=== PATIENT | female | born 1965 | race African-American/Black ===

== ENCOUNTER 2019-08-06 19:09 | Inpatient (IN) | payer MEDICARE, MEDICAID ==
[~2019-08-06] VITALS: Ht 167.6 cm; Wt 63.5 kg
[2019-08-06] MEDS ORDERED: ACETAMINOPHEN 325MG TABLET PO STA (19:22)
[2019-08-06] MEDS ORDERED: VANCOMYCIN 1 G PREMIX 200 ML IV ONE (19:30)
[2019-08-06] MEDS ORDERED: PIPERACILLIN/TAZ 3.375G PREMIX 50 ML IV ONE (19:30)
[2019-08-06 20:12] LABS: BASOPHILS % 0.3 % (0.0-2.0); EOSINOPHILS % 0.9 % (0.0-5.0); HEMATOCRIT. 33.6 % (36.0-48.0); HEMOGLOBIN. 10.9 g/dL (12.0-16.0); LYMPHOCYTES % 9.9 % (20.0-50.0); MEAN CORPUSCULAR HEMOGLOBIN 28.5 pg (28.0-32.0); MEAN CORPUSCULAR VOLUME 88.2 fL (81.0-99.0); MEAN PLATELET VOLUME 8.1 fl (7.4-10.4); MONOCYTES % 11.6 % (2.0-8.0); NEUTROPHILS % 77.3 % (40.0-76.0); PLATELET 219 x1000/uL (130-400); RED BLOOD CELL COUNT 3.81 mill/uL (4.2-5.4); RED CELL DISTRIBUTION WIDTH 18.7 % (11.6-14.6)
[2019-08-06 20:17] LABS: CHLORIDE 93 mEq/L (98-107)
[2019-08-06 20:18] LABS: INR 1.1; PROTHROMBIN TIME 10.8 sec (9.6-11.0)
[2019-08-06] MEDS ORDERED: MORPHINE SULFATE 4 MG/ML CPJ (NOT FOR IM USE) IV STA (22:40)
[2019-08-06] MEDS ORDERED: ONDANSETRON HCL 4MG/2ML INJ IV STA (22:40)
[2019-08-06] MEDS ORDERED: CLONIDINE 0.1MG TABLET PO PRN (23:30)
[2019-08-06] MEDS ORDERED: ONDANSETRON HCL 4MG/2ML INJ IV PRN (23:30)
[2019-08-07] MEDS: HYDROCODONE/ACETAMINOPHEN 5/325MG TABLET PO PRN ×4 (05:32→13:05)
[2019-08-07] MEDS: ACETAMINOPHEN 325MG TABLET PO PRN ×3 (05:40→17:33)
[2019-08-07] MEDS ORDERED: LEVETIRACETAM 500MG PREMIX 100 ML IV NR (10:30)
[2019-08-07 15:59] LABS: BASOPHILS % 0.4 % (0.0-2.0); EOSINOPHILS % 1.3 % (0.0-5.0); HEMATOCRIT. 31.2 % (36.0-48.0); HEMOGLOBIN. 10.2 g/dL (12.0-16.0); LYMPHOCYTES % 15.6 % (20.0-50.0); MEAN CORPUSCULAR HEMOGLOBIN 28.5 pg (28.0-32.0); MEAN CORPUSCULAR VOLUME 87.5 fL (81.0-99.0); MEAN PLATELET VOLUME 8.4 fl (7.4-10.4); MONOCYTES % 9.3 % (2.0-8.0); NEUTROPHILS % 73.4 % (40.0-76.0); PLATELET 213 x1000/uL (130-400); RED BLOOD CELL COUNT 3.56 mill/uL (4.2-5.4)
[2019-08-07 16:02] LABS: CHLORIDE 93 mEq/L (98-107)
[2019-08-07 17:00] VITALS: BP 141/66
[2019-08-07] MEDS: SEVELAMER CARBONATE 800 MG TABLET PO SCH (17:50)
[2019-08-07] MEDS: ATENOLOL 50 MG TABLET PO SCH (18:00)
[2019-08-07] MEDS: NIFEDIPINE XL 30MG TAB PO SCH (18:00)
[2019-08-07 20:00] VITALS: BP 145/83
[2019-08-07] MEDS ORDERED: CEFTRIAXONE 1 G PREMIX 50 ML IV SCH (20:00)
[2019-08-07] MEDS: CINACALCET HCL 30MG TABLET PO SCH ×2 (20:00→22:20)
[2019-08-07] MEDS ORDERED: GENTAMICIN 120MG PREMIX 100 ML IV SCH (21:00)
[2019-08-07] MEDS: LEVETIRACETAM 500MG TABLET PO SCH (22:19)
[2019-08-07] MEDS: ATORVASTATIN CALCIUM 10MG TABLET PO SCH (22:20)
[2019-08-07] MEDS: HYDROCODONE/ACETAMINOPHEN 10/325MG TABLET PO PRN (22:30)
[2019-08-07] MEDS: HEPARIN 5000 UNITS/ML VIAL SUBCUT SCH (22:31)
[2019-08-07] MEDS ORDERED: ATOR40TA70 PO (23:37)
[2019-08-07] MEDS ORDERED: CINA90TA PO (23:37)
[2019-08-07] MEDS ORDERED: NIFE90TA2 PO (23:37)
[2019-08-07] MEDS ORDERED: ATEN100T PO (23:37)
[2019-08-07] MEDS ORDERED: KEPP500 PO (23:37)
[2019-08-08] VITALS: BP 167/77
[2019-08-08 04:00] VITALS: BP 196/89
[2019-08-08] MEDS: HYDROCODONE/ACETAMINOPHEN 10/325MG TABLET PO PRN ×3 (05:50→20:40)
[2019-08-08 08:00] VITALS: BP 168/78
[2019-08-08] MEDS: LEVETIRACETAM 500MG TABLET PO SCH ×2 (08:27→20:41)
[2019-08-08] MEDS: NIFEDIPINE XL 30MG TAB PO SCH (08:27)
[2019-08-08] MEDS: SEVELAMER CARBONATE 800 MG TABLET PO SCH ×3 (08:27→18:06)
[2019-08-08] MEDS: ATENOLOL 50 MG TABLET PO SCH (08:28)
[2019-08-08] MEDS: HEPARIN 5000 UNITS/ML VIAL SUBCUT SCH ×2 (08:28→20:41)
[2019-08-08 09:32] LABS: PHOSPHORUS 5.2 mg/dL (2.5-4.9)
[2019-08-08 09:47] LABS: BASOPHILS % 0.2 % (0.0-2.0); EOSINOPHILS % 2.9 % (0.0-5.0); HEMATOCRIT. 33.7 % (36.0-48.0); HEMOGLOBIN. 11.1 g/dL (12.0-16.0); LYMPHOCYTES % 13.8 % (20.0-50.0); MEAN CORPUSCULAR HEMOGLOBIN 29.8 pg (28.0-32.0); MEAN CORPUSCULAR VOLUME 90.6 fL (81.0-99.0); MEAN PLATELET VOLUME 8.7 fl (7.4-10.4); MONOCYTES % 9.7 % (2.0-8.0); NEUTROPHILS % 73.4 % (40.0-76.0); PLATELET 215 x1000/uL (130-400); RED BLOOD CELL COUNT 3.72 mill/uL (4.2-5.4)
[2019-08-08] MEDS: CINACALCET HCL 30MG TABLET PO SCH (10:29)
[2019-08-08] MEDS ORDERED: LOSARTAN POTASSIUM 50 MG TABLET PO SCH (11:30)
[2019-08-08 12:00] VITALS: BP 165/79
[2019-08-08] MEDS ORDERED: CEFTRIAXONE 1 G PREMIX 50 ML IV SCH (14:00)
[2019-08-08] MEDS ORDERED: VANCOMYCIN 500 MG PREMIX 100 ML IV NR (16:00)
[2019-08-08 16:07] VITALS: BP 112/70
[2019-08-08 20:00] VITALS: BP 128/61
[2019-08-08] MEDS: ATORVASTATIN CALCIUM 10MG TABLET PO SCH (20:39)
[2019-08-09] VITALS: BP 134/69
[2019-08-09] MEDS: HYDROCODONE/ACETAMINOPHEN 10/325MG TABLET PO PRN ×2 (03:13→12:16)
[2019-08-09 04:00] VITALS: BP 144/62
[2019-08-09] MEDS: SEVELAMER CARBONATE 800 MG TABLET PO SCH ×2 (07:50→11:57)
[2019-08-09 08:00] VITALS: BP 145/73
[2019-08-09] MEDS: HEPARIN 5000 UNITS/ML VIAL SUBCUT SCH (09:00)
[2019-08-09] MEDS: ATENOLOL 50 MG TABLET PO SCH (09:00)
[2019-08-09] MEDS: LEVETIRACETAM 500MG TABLET PO SCH (10:57)
[2019-08-09] MEDS ORDERED: DOXY100C42 MT (11:10)
[2019-08-09 12:00] VITALS: BP 143/89
[2019-08-09 16:00] VITALS: BP 140/72
== END 2019-08-09 17:43 | disposition home or self-care (01) | DRG 871 ==
LOC: ER 19:09 → 6WST 23:19 → EDBEDREQ 23:22 → EDBEDREQTM 23:22 → EDBEDREQSVC 23:22 → ENRESERV 08-07 14:53
PROVIDERS: ADMIT Internal Medicine; ATTEND Internal Medicine
PROC: 5A1D70Z Performance of Urinary Filtration, Intermittent, Less than 6 Hours Per Day (ICD-10-PCS; principal; 2019-08-07)
PROC: 5A1D70Z Performance of Urinary Filtration, Intermittent, Less than 6 Hours Per Day (ICD-10-PCS; 2019-08-08)
DX: A41.9 Sepsis, unspecified organism (principal); J18.9 Pneumonia, unspecified organism; G92 Toxic encephalopathy; N18.6 End stage renal disease; E87.1 Hypo-osmolality and hyponatremia; I13.11 Hypertensive heart and chronic kidney disease without heart failure, with stage 5 chronic kidney disease, or end stage renal disease; E11.22 Type 2 diabetes mellitus with diabetic chronic kidney disease; E66.9 Obesity, unspecified; E78.5 Hyperlipidemia, unspecified; E87.6 Hypokalemia; M46.1 Sacroiliitis, not elsewhere classified; G40.909 Epilepsy, unspecified, not intractable, without status epilepticus; D64.9 Anemia, unspecified; F32.9 Major depressive disorder, single episode, unspecified; E21.2 Other hyperparathyroidism; N30.90 Cystitis, unspecified without hematuria; Z86.73 Personal history of transient ischemic attack (TIA), and cerebral infarction without residual deficits; Z87.440 Personal history of urinary (tract) infections; Z99.2 Dependence on renal dialysis; Z68.22 Body mass index [BMI] 22.0-22.9, adult; Z88.0 Allergy status to penicillin; Z88.8 Allergy status to other drugs, medicaments and biological substances; Z88.6 Allergy status to analgesic agent; Q65.89 Other specified congenital deformities of hip
CPT/HCPCS: 36415; 71045; 80048; 80053; 80202; 82962; 83735; 84100; 85025; 87077; 87186; 87804; 93005; 97162; 99291; J0696; J1580; J1644; J2270; J2405; J2543; J3370

== ENCOUNTER 2023-10-03 13:06 | Emergency (ER) | payer MEDICARE, BC ==
[~2023-10-03 13:06] MED LIST: ATEN100T PO; ATOR40TA70 PO; CINA90TA PO; DOXY-456 MT; KEPP500 PO; NIFE90TA2 PO
== END 2023-10-03 14:35 | disposition left against medical advice (07) ==
LOC: ER 13:31
DX: T82.838A Hemorrhage due to vascular prosthetic devices, implants and grafts, initial encounter (principal); Z53.21 Procedure and treatment not carried out due to patient leaving prior to being seen by health care provider
CPT/HCPCS: 99281